=== PATIENT | female | born 2000 | race Caucasian/White ===

== ENCOUNTER 2023-05-06 11:11 | Emergency (ER) | payer OTHER ==
[~2023-05-06] VITALS: Ht 162.6 cm; Wt 61.2 kg
[2023-05-06] MEDS ORDERED: BACTRIM 400-801 EACH PO (14:57)
== END 2023-05-06 15:09 | disposition home or self-care (01) ==
LOC: ER 11:11
DX: H00.011 Hordeolum externum right upper eyelid (principal)